=== PATIENT | male | born 2000 | race Caucasian/White ===

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

== ENCOUNTER 2022-10-26 19:01 | Emergency (ER) | payer OTHER ==
[~2022-10-26] VITALS: Ht 177.8 cm; Wt 90.0 kg
[~2022-10-26 19:01] MED LIST changes: +BUPROPION XL150 MG PO; +HYDROCODON-ACE1 EAC8 PO; +LAMOTRIGINE150 MG PO; +VITAMIN D325 MC3 PO
[2022-10-26] MEDS ORDERED: ONDANSETRON ODT4 MG PO (22:28)
== END 2022-10-26 22:39 | disposition home or self-care (01) ==
LOC: ED 19:01
DX: R11.2 Nausea with vomiting, unspecified (principal); R10.9 Unspecified abdominal pain; Z79.899 Other long term (current) drug therapy; Z91.048 Other nonmedicinal substance allergy status
CPT/HCPCS: 36415; 80053; 81003; 83690; 83735; 85025; 99284

== ENCOUNTER 2024-10-27 17:24 | Emergency (ER) | payer OTHER ==
[~2024-10-27] VITALS: Ht 177.8 cm; Wt 83.1 kg
[~2024-10-27 17:24] MED LIST changes: +ONDANSETRON ODT4 MG PO
[2024-10-27] MEDS ORDERED: PREDNISONE20 MG PO (18:51)
[2024-10-27] MEDS ORDERED: BETAMETHASONE D15 G3 TOP (18:51)
[2024-10-27] MEDS ORDERED: DULOXETINE HCL30 MG PO (18:51)
[2024-10-27] MEDS ORDERED: VENTOLIN HFA18 GM INH (18:51)
[2024-10-27] MEDS ORDERED: ALBUTEROL/IPRATROPIUM 3 ML NEB INH ONE (20:15)
[2024-10-27 20:37] LABS: CORONAVIRUS COVID-19 AG NEGATIVE (NEGATIVE); INFLUENZA A AG NEGATIVE (NEGATIVE); INFLUENZA B AG NEGATIVE (NEGATIVE)
[2024-10-27 20:52] VITALS: BP 125/81
[2024-10-27] MEDS ORDERED: ALBUTEROL SULFATE 8 GM HOME.PACK INH ONE (21:00)
[2024-10-27] MEDS ORDERED: INHALER, ASSIST DEVICES 1 EACH SPACER MISC ONE (21:00)
== END 2024-10-27 20:56 | disposition home or self-care (01) ==
LOC: ED 17:24
PROVIDERS: Internal Medicine
DX: J06.9 Acute upper respiratory infection, unspecified (principal); J45.909 Unspecified asthma, uncomplicated; Z91.048 Other nonmedicinal substance allergy status; Z79.52 Long term (current) use of systemic steroids; Z79.899 Other long term (current) drug therapy
CPT/HCPCS: 36415; 71045; 94640; 99284-25

== ENCOUNTER 2025-06-04 01:50 | Emergency (ER) | payer OTHER ==
[~2025-06-04] VITALS: Ht 177.8 cm; Wt 101.0 kg
[~2025-06-04 01:50] MED LIST changes: +BETAMETHASONE D15 G3 TOP; +DULOXETINE HCL30 MG PO; +PREDNISONE20 MG PO; +VENTOLIN HFA18 GM INH
[2025-06-04] MEDS ORDERED: ALBUTEROL/IPRATROPIUM 3 ML NEB INH ONE (02:15)
[2025-06-04] MEDS ORDERED: ALBUTEROL SULFATE 8 GM HOME.PACK INH ONE (04:45)
[2025-06-04 05:12] VITALS: BP 127/77
== END 2025-06-04 05:00 | disposition home or self-care (01) ==
LOC: ED 01:50
DX: J45.901 Unspecified asthma with (acute) exacerbation (principal); J45.909 Unspecified asthma, uncomplicated; F17.200 Nicotine dependence, unspecified, uncomplicated; Z79.52 Long term (current) use of systemic steroids; Z79.899 Other long term (current) drug therapy; Z91.048 Other nonmedicinal substance allergy status
CPT/HCPCS: 94640; 99284; J8540